=== PATIENT | female | born 1980 | race Caucasian/White ===

== ENCOUNTER → 2021-08-16 | Outpatient (CLI) | payer BC, OTHER ==
[~2021-08-16] MED LIST: ADV1DS; ALB6.8IN; BLAC80CA PO; CALC625T; CLON0.5T3; CYCL5TAB11 PO; DICY10CA26 PO; FAMO20TA73; GUAN1TAB17 PO; HYDR-34; HYDR1CAP3; IBP600T1; MNTL10T; PARO20TA57; PRX20T
--- NOTE | 2021-08-16 13:24 | Diagnostic Imaging Report ---
INDICATION: Routine screening. COMPARISON: No prior mammograms are available for comparison. This is a baseline study. TECHNIQUE: 2D and 3D bilateral screening mammography was performed with CAD. FINDINGS: Both breasts are heterogeneously dense, limiting the sensitivity of mammography. No mass or malignant-appearing microcalcifications are seen. The axillae are unremarkable. IMPRESSION: No mammographic features suspicious for malignancy are identified. ACR BI-RADS Category 1: Negative. Result letter will be mailed to the patient. Note: At least 10% of breast cancer is not imaged by mammography. Dictated by: Dictated on workstation # [id number]
== END ==
LOC: RAD 10:30
PROVIDERS: ATTEND Obstetrics & Gynecology
DX: Z12.31 Encounter for screening mammogram for malignant neoplasm of breast (principal); Z01.419 Encounter for gynecological examination (general) (routine) without abnormal findings
CPT/HCPCS: 77063; 77067